=== PATIENT | female | born 1955 | race Caucasian/White ===

== ENCOUNTER 2017-07-04 09:36 | Emergency (ER) | payer OTHER ==
[~2017-07-04] VITALS: Ht 165.1 cm; Wt 67.6 kg
[2017-07-04] MEDS ORDERED: AMLODIPINE BESYL5 MG (09:54)
[2017-07-04] MEDS ORDERED: FORTAMET500 MG (09:54)
[2017-07-04] MEDS ORDERED: ROPINIROLE HCL1 MG (09:54)
[2017-07-04] MEDS ORDERED: GLIMEPIRIDE2 MG (09:58)
[2017-07-04] MEDS ORDERED: PNEU16DI2 (09:58)
[2017-07-04] MEDS ORDERED: DICLOFENAC POTA50 MG PO (10:49)
[2017-07-04] MEDS ORDERED: NEURONTIN300 MG PO (10:49)
[2017-07-04] MEDS ORDERED: DIAZEPAM10 MG PO (10:49)
== END 2017-07-04 11:47 | disposition home or self-care (01) ==
LOC: ER 09:36
DX: M54.31 Sciatica, right side (principal)